=== PATIENT | female | born 1990 | race Two or more races ===

== ENCOUNTER 2017-03-07 10:43 | Emergency (ER) | payer MEDICAID ==
[~2017-03-07] VITALS: Ht 157.5 cm; Wt 86.2 kg
[~2017-03-07 10:43] MED LIST: LEVO750T26 PO; ONDA4TAB13 SL; OXYC-302 PO
[2017-03-07 11:48] LABS: HEMATOCRIT 35.7 % (34.6-47.8); HEMOGLOBIN 12.1 g/dL (11.7-16.4); WHITE BLOOD COUNT 10.3 x10^3/uL (3.4-10)
[2017-03-07 14:17] VITALS: BP 131/85
== END 2017-03-07 14:20 | disposition home or self-care (01) ==
LOC: ED 12:52
DX: O20.0 Threatened abortion (principal); O23.12 Infections of bladder in pregnancy, second trimester; Z3A.19 19 weeks gestation of pregnancy
CPT/HCPCS: 36415; 76801; 81001; 84702; 85025; 86901; 87086; 99285

== ENCOUNTER 2017-04-30 17:20 | Emergency (ER) | payer MEDICAID ==
[~2017-04-30] VITALS: Ht 157.5 cm; Wt 88.0 kg
[2017-04-30] MEDS ORDERED: ONDANSETRON 2MG/ML, 2ML ONE (17:37)
[2017-04-30] MEDS ORDERED: HYDROmorphone 1 MG/ML, 1ML ONE ×2 (17:37→18:23)
[2017-04-30] MEDS: HYDROmorphone 1 MG/ML, 1ML IVPush PRN ×2 (17:47→18:30)
[2017-04-30 17:49] LABS: HEMATOCRIT 35.1 % (34.6-47.8); WHITE BLOOD COUNT 11.6 x10^3/uL (3.4-10)
[2017-04-30] MEDS ORDERED: PRENATAL PO (17:57)
[2017-04-30] MEDS ORDERED: ACET325C PO (17:57)
[2017-04-30] MEDS ORDERED: ONDANSETRON 2MG/ML, 2ML IVPush ONE (18:00)
[2017-04-30] MEDS ORDERED: SODIUM CHLORIDE 0.9% 1,000ML IVBOLUS ONE (18:00)
[2017-04-30 18:01] LABS: ASPARTATE AMINO TRANSFERASE 9 U/L (15-37); BLOOD UREA NITROGEN 7 mg/dL (7-18)
[2017-04-30] MEDS ORDERED: SODIUM CHLORIDE FLUSH 10ML SYR IVF ONE (18:30)
[2017-04-30] MEDS ORDERED: CEFTRIAXONE PMX 1GM/50ML 50 ML ONE (18:57)
[2017-04-30] MEDS ORDERED: CEFTRIAXONE PMX 1GM/50ML 50 ML IV ONE (19:00)
[2017-04-30 19:22] LABS: PATH.CAST-FLAG NOT PRESENT; SPERM-FLAG NOT PRESENT; SRC-FLAG NOT PRESENT; XTAL-FLAG NOT PRESENT; YLC-FLAG NOT PRESENT
[2017-04-30 21:48] VITALS: BP 104/64
== END 2017-04-30 21:53 | disposition home or self-care (01) ==
LOC: ED 18:57
DX: N13.2 Hydronephrosis with renal and ureteral calculous obstruction (principal)
CPT/HCPCS: 36415; 76770; 80053; 81001; 81003; 83690; 85025; 87086; 96361; 96365; 96375; 96376; 99285; J0696; J1170; J2405; J7030

== ENCOUNTER 2020-03-14 14:19 | Emergency (ER) | payer SELFPAY ==
[~2020-03-14] VITALS: Ht 157.5 cm; Wt 80.6 kg
[~2020-03-14 14:19] MED LIST changes: +ACET325C3 PO; +PRENATAL PO
[2020-03-14 15:12] LABS: MICROSCOPIC AUTO
[2020-03-14 15:36] LABS: BASOPHILS # (AUTO) 0.03 x10^3/uL (0-0.1); BASOPHILS % (AUTO) 0 % (0-1); EOSINOPHILS # (AUTO) 0.11 x10^3/uL (0-0.4); EOSINOPHILS % (AUTO) 1 % (1-7); LYMPHOCYTES # (AUTO) 2.12 x10^3/uL (1-3.4); LYMPHOCYTES % (AUTO) 26 % (22-44); MD NO; MEAN CORPUSCULAR HEMOGLOBIN 30.6 pg (27.0-34.8); MEAN CORPUSCULAR HGB CONC 33.7 g/dL (32.4-35.8); MEAN CORPUSCULAR VOLUME 90.9 fL (80-100); MONOCYTES # (AUTO) 0.34 x10^3/uL (0.2-0.8); MONOCYTES % (AUTO) 4 % (2-9); NEUTROPHILS # (AUTO) 5.66 x10^3/uL (1.8-6.8); NEUTROPHILS % (AUTO) 69 % (42-75); PLATELET COUNT 300 x10^3/uL (130-400); RED BLOOD COUNT 4.52 x10^6/uL (3.82-5.3); RED CELL DISTRIBUTION WIDTH 12.9 % (9.6-15.2)
[2020-03-14 15:54] LABS: CHLORIDE 106 mmol/L (98-107)
--- NOTE | 2020-03-14 16:01 | NUR ---
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
[2020-03-14 16:26] VITALS: BP 113/52
[2020-03-14 16:48] LABS: ALANINE AMINOTRANSFERASE 22 U/L (12-78); ALKALINE PHOSPHATASE 67 U/L (45-117); ANION GAP 7 mmol/L (5-15); BILIRUBIN,TOTAL 0.3 mg/dL (0.2-1.0); CALCIUM 9.6 mg/dL (8.5-10.1); CREATININE 0.45 mg/dL (0.55-1.02); TOTAL PROTEIN 7.9 g/dL (6.4-8.2)
== END 2020-03-14 17:56 | disposition home or self-care (01) ==
LOC: ED 17:30
DX: O20.0 Threatened abortion (principal); Z3A.09 9 weeks gestation of pregnancy
CPT/HCPCS: 36415; 76801; 80053; 81001; 84702; 85025; 87086; 87147; 99284